=== PATIENT | female | born 1970 | race Two or more races ===

== ENCOUNTER → 2023-06-10 | Day surgery (SDC) | payer MEDICAID ==
[2023-06-07 09:44] LABS: Basophils # (auto) 0.1 10 ^3/uL (0-0.2); Basophils % (auto) 1.1 % (0.0-2.0); Eosinophils # (auto) 0.1 10 ^3/uL (0-0.8); Eosinophils % (auto) 1.8 % (0.0-7.0); Hematocrit 41.4 % (36.0-46.0); Hemoglobin 13.7 g/dL (12.2-16.2); Lymphocytes # (auto) 1.8 10 ^3/uL (0.4-5.4); Mean Corpuscular Hemoglobin 28.9 pg (28.0-32.0); Mean Corpuscular Hgb Conc. 33.1 g/dL (32.0-36.0); Mean Corpuscular Volume 87.2 fL (80.0-100.0); Monocytes # (auto) 0.3 10 ^3/uL (0-1.3); Monocytes % (auto) 5.2 % (0.0-12.0); Neutrophils # (auto) 2.7 10 ^3/uL (1.6-8.6); Neutrophils % (auto) 54.9 % (37.0-80.0); Red Blood Cells 4.75 10^6/uL (4.0-5.20); Red Cell Distribution Width 13.9 % (11.8-14.3); White Blood Cell 4.9 10^3/uL (4.4-10.8)
[2023-06-07 09:58] LABS: INR 1.03 (0.9-1.15); Prothrombin Time 10.8 sec (9.3-11.8)
[2023-06-07 10:22] LABS: Alanine Aminotransferase 42 U/L (7-40); Albumin 5.2 g/dL (3.2-4.8); Alkaline Phosphatase 52 U/L (46-116); Anion Gap 7 (5-15); Aspartate Aminotransferase 18 U/L (13-40); BUN/Creatinine Ratio 14.3 (10.0-20.0); Bilirubin, Total 0.8 mg/dL (0.2-1.0); Blood Urea Nitrogen 13 mg/dL (9-23); Calcium 10.1 mg/dL (8.5-10.1); Carbon Dioxide 28 mmol/L (20-30); Chloride 106 mmol/L (98-107); Glucose 101 mg/dL (74-106); Potassium 4.3 mmol/L (3.5-5.1); Sodium 141 mmol/L (136-145); Total Protein 7.8 g/dL (5.7-8.2)
[~2023-06-10] VITALS: Ht 157.5 cm; Wt 72.6 kg
[~2023-06-10] MED LIST: ATO40T PO; LABE100T4 PO; LORA-622 PO; METF-489 PO; SEMA2INJ3 SC; SODIUM CHLORIDE LOCK 10 ML ONE; VALS320T PO
[2023-06-10 13:35] VITALS: PULSE 68; RESP 20; O2SAT 100
[2023-06-10] MEDS: fentaNYL CITRATE 100 MCG/2 ML VL ONE ×2 (13:48→13:50)
[2023-06-10] MEDS: MIDAZOLAM HCL 5 MG/ML-1ML VIAL ONE ×2 (13:48→13:50)
[2023-06-10] MEDS: diphenhdrAMINE HCL 50 MG/1 ML VL ONE ×2 (13:48→13:49)
[2023-06-10 14:05] VITALS: TEMP 97.9; O2SAT 97
[2023-06-10 14:56] VITALS: BP 156/82; PULSE 71; RESP 19; O2SAT 97
== END | disposition home or self-care (01) ==
LOC: GI 12:17
PROVIDERS: ATTEND Internal Medicine Gastroenterology
DX: R19.5 Other fecal abnormalities (principal); K57.30 Diverticulosis of large intestine without perforation or abscess without bleeding; K64.0 First degree hemorrhoids; E11.9 Type 2 diabetes mellitus without complications; I10 Essential (primary) hypertension; Z79.899 Other long term (current) drug therapy; Z79.84 Long term (current) use of oral hypoglycemic drugs; Z98.890 Other specified postprocedural states
CPT/HCPCS: 36415; 80053; 82962; 84702; 85025; 85610; 85730; J1200; J2250; J3010; J7030; 45378

== ENCOUNTER → 2024-01-30 | Outpatient (CLI) | payer MEDICAID ==
[~2024-01-30] MED LIST changes: -ATO40T PO; +ATOR-507 PO; -LABE100T4 PO; +LABE100T7 PO; -SODIUM CHLORIDE LOCK 10 ML ONE
[2024-01-30 09:39] LABS: Urine Bacteria None Seen /hpf (None Seen)
[2024-01-30 10:23] LABS: Chloride 107 mmol/L (98-107); Potassium 3.8 mmol/L (3.5-5.1); Sodium 140 mmol/L (136-145)
[2024-01-30 10:24] LABS: Anion Gap 8 (5-15); Carbon Dioxide 25 mmol/L (20-30); Protein, Urine < 6.0 mg/dL (0.0-11.9)
[2024-01-30 10:25] LABS: Calcium 9.4 mg/dL (8.7-10.4)
[2024-01-30 10:27] LABS: Creatinine, Urine 30.78 mg/dL (30.0-125.0)
[2024-01-30 10:29] LABS: Glucose 96 mg/dL (74-106); Triglycerides 131 mg/dL (< 150)
[2024-01-30 10:30] LABS: BUN/Creatinine Ratio 13.5 (10.0-20.0); Blood Urea Nitrogen 10 mg/dL (9-23); LDL Cholesterol 82 mg/dL (< 100); Micro Albumin < 3.0 mg/L (<30.0)
[2024-01-30 10:31] LABS: Cholesterol 160 mg/dL (< 200); HDL Cholesterol 57 mg/dL (40-59)
[2024-01-30 10:36] LABS: Urine Protein/Creatinine Ratio < 0.19
[2024-01-30 10:46] LABS: Hepatitis B Surface Antigen Negative (Negative)
[2024-01-30 10:58] LABS: Urine Blood Negative /uL (Negative); Urine Clarity Clear (Clear); Urine Color Colorless (Yellow); Urine Protein, UAD Negative (Negative); Urine Specific Gravity 1.006 (1.001-1.035); Urine Urobilinogen Normal (Negative); Urine WBC <1 /hpf (0 - 5); Urine pH 6.5 (5.0-9.0)
[2024-01-30 11:07] LABS: Hepatitis A Ab IgM Negative
[2024-01-30 11:08] LABS: Hepatitis B Core IgM Negative; Hepatitis C Antibody Negative (Negative)
[2024-01-31 07:06] LABS: RPR Non Reactive (Non Reactive)
[2024-01-31 10:07] LABS: HSV 2 IgG Antibody <0.91 index (0.00-0.90); Mumps IgG Antibody 70.5 AU/mL (Immune >10.9); Rubeola IgG Antibody 99.9 AU/mL (Immune >16.4); Varicella Zoster IgG Antibody >4000 index (Immune >165)
[2024-01-31 19:06] LABS: Chlamydia Trachomatis, NAA Negative (Negative); Neisseria gonorrhoeae, NAA Negative (Negative)
== END | disposition home or self-care (01) ==
LOC: LAB 09:16
PROVIDERS: ATTEND Internal Medicine
DX: I10 Essential (primary) hypertension (principal); Z00.01 Encounter for general adult medical examination with abnormal findings; E11.69 Type 2 diabetes mellitus with other specified complication; E78.2 Mixed hyperlipidemia; E66.3 Overweight; R94.4 Abnormal results of kidney function studies; E87.0 Hyperosmolality and hypernatremia; R74.01 Elevation of levels of liver transaminase levels
CPT/HCPCS: 36415; 80048; 80061; 80074; 81001; 82043; 82570; 83036; 84156; 86592; 86695; 86696; 86703; 86735; 86762; 86765; 86787